=== PATIENT | female | born 1985 | race African-American/Black ===

== ENCOUNTER 2019-06-07 15:04 | Emergency (ER) | payer SELFPAY ==
--- OUTSIDE RECORDS SUMMARY | 2019-06-07 15:09 | XMS REPORT | Continuity of Care Document ---
:1985 Author Organization [facility] Address [address] [place] [address] Phone Care Team Providers Name Role Phone Radha Estrada NP Unavailable Unavailable Allergies, Adverse Reactions, Alerts Substance Reaction Status Penicillins Hives/Skin Rash Active Medications Medication Instructions Dosage Effective Dates (start - Status Comments stop) amlodipine 5 mg tablet - Active Problems Condition Effective Dates Clinical Status Comments (start - stop) Encounter for oth general cnsl and advice on contraception Encntr screen for infections w sexl mode of transmiss Acute vaginitis Encounter for test, result negative Tobacco use Encntr screen for infections w sexl mode of transmiss Subacute and chronic vaginitis Noninflammatory disorder of vagina, unspecified Encounter for oth general cnsl and advice on procreation Encounter for test, result negative 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 Encounter for oth screening for malignant neoplasm of breast Encntr screen for infections w sexl mode of transmiss Acute vaginitis Encounter for oth general cnsl and advice on contraception Encounter for test, result negative Candidiasis of vulva and vagina Subacute and chronic vulvitis Encntr screen for infections w sexl mode of transmiss HIV Counseling HIV, Screening PT, Negative BV BV STI Screening LABORATORY EXAM NOS LABORATORY EXAM NOS Trichomoniasis of other - Chronic specified sites Chlamydia - Chronic BV - Chronic Uterine Fibroid - Chronic Bacterial vaginosis - Active Mapped from [facility] Chronic Conditions table on 10/28/2013 by the ICD9 to SNOMED Bulk Mapping Utility. The mapped diagnosis code was Recurrent BV,Recurrent BV, 616.10, added by Willa Lan NP, with responsible provider Willa Lan NP. Onset date 10/05/2013; last addressed on 10/05/2013; 09/04, 11/04,01/04,02/04, 02/09; 09/04, 11/04,01/04,02/04, 07/10, 04/09, 07/11, 09/08, 03/10, 02/09. Chlamydial infection - Active Mapped from [facility] Chronic Conditions table on 10/28/2013 by the ICD9 to SNOMED Bulk Mapping Utility. The mapped diagnosis code was Chlamydia, 079.98, added by Willa Lan NP, with responsible provider Willa Lan NP. Onset date 10/05/2013; 04/07; 04/07. Infection by Trichomonas - Active Mapped from [facility] Chronic Conditions table on 10/28/2013 by the ICD9 to SNOMED Bulk Mapping Utility. The mapped diagnosis code was Trichomoniasis, 131.8, added by Willa Lan NP, with responsible provider Willa Lan NP. Onset date 10/05/2013; 02/09; 02/09. Uterine leiomyoma - Active Mapped from [facility] Chronic Conditions table on 10/28/2013 by the ICD9 to SNOMED Bulk Mapping Utility. The mapped diagnosis code was Uterine fibroids, 218.9, added by Willa Lan NP, with responsible provider Willa Lan NP. Onset date 10/05/2013. Procedures Procedure Date No information Results Test Name Date and Time Measure Units Reference Range Abnormal Flag Status Comments No information Advance Directives Directive Yes / No Effective Date File Name No information Encounters Encounter Practice Location Reason(s) Diagnoses Date Provider Providers Description For Visit Copied on [facility]counter [facility] 9 [address] [facility] [facility], [address], [place], [place], [address]. [id number], tel:[phone] [phone] [facility] Encounter for oth [facility] [place] general cnsl and [place]. Provider: [facility] advice on 9 [address] [place] contraceptionEncntr [place], [address] [place] infections w sexl [place], St, St, [place], [place], [place], [place] [address], [place], [address]. [id number], vaginitisEncounter [place]. [place] for test, tel:[phone] result negative [id number] [facility] Tobacco useEncntr [facility] [place] screen for Radha. [place] infections w sexl 7 [address] mode of [place], [address], W [place] and chronic [place], St, [place], vaginitisNoninflamm [place] [address]. [id number], vagina, tel:+[phone] [place] unspecifiedEncounte [id number] tel:[phone] r for oth general [phone] cnsl and advice on procreation [facility] Encounter for [facility] [place] test, Pepper. Southern result 6 [address] [place] negativeEncntr for [place], [address] transition teacher exam (general) St, W [place] (routine) w/o abn [place], [place], [place], findingsEncounter [place], for o[place] screening [id number], [id number], for malignant [place]. [place] neoplasm of tel:[phone] breastEncntr screen [id number] for infections w sexl mode of transmissAcute vaginitisEncounter for oth general cnsl and advice on contraception [facility] Encounter for [facility] [place] test, [place] result 5 [place]. [place] negativeCandidiasis [address], [address] of vulva and [place] vaginaSubacute and St, St, [place], chronic [place], vulvitisEncntr [place], [id number], screen [place] [address]. [place] infections w sexl tel:[phone] tel:[phone] mode of transmiss [phone] [id number] [facility] Trichomoniasis of May-0 [facility] [place] other specified 9- Willa. [place] sitesChlamydiaBVUte 4 [address] rine [facility]roid [facility] [address] [place], , [place], [place], [address]. [id number], tel:[phone] [place] [phone] tel:[phone] [facility] HIV CounselingHIV, Mar-2 [facility] [place] Screening 6 Carlie. [place] 4 [address] [place], [address] [place], , [place], [place], [address]. [id number], tel:[phone] [place] [phone] tel:[phone] [facility] PT, NegativeBVBVSTI Jul-2 [facility] Screening 6- Carlie. [place] 4 [address] [place], [address] [facility] , [place], [place], [address]. [id number], tel:[phone] [place] [phone] tel:[phone] [facility] Feb-2 [facility] [place] 7 Willa. [place] 4 [address] [place] [facility], [address] [facility] , [place], [place], [address]. [id number], tel:[phone] [place] [phone] tel:[phone] [facility] LABORATORY EXAM NOS Dec-0 [facility] [place] 4- Rojelio. [place] 3 [address] [place], [address] [place], , [place], [place], [address]. [id number], tel:[phone] [place] [phone] tel:[phone] [facility] LABORATORY EXAM NOS Sep-1 [facility] [place] 1- [place] 3 [place]. [place] [address] [place] [address] [facility], St, [place], [place], [place], [id number], [address]. [place] tel:+[phone] tel:[phone] Family History Family Member Diagnosis Age At Onset Mother Stroke 46 Mother Hypertension Father Renal disease Mother Heart disease Father HIV Grandmother Osteoporosis Immunizations Vaccine Date Status Comments MMR administered Source: New Immunization Record HPV administered Source: New Immunization Record Hepatitis B administered Source: New Immunization Record Hepatitis A administered Source: New Immunization Record Payers Payer name Insurance type Covered democrat ID Authorization(s) Total Care [facility] [id number] Social History Type Description Quantity Date Captured Comments Alcohol Use Details Unknown Caffeine Use Details Unknown Tobacco Use Status Smoking Status Light tobacco smoker Sex Female Vital Signs Date / Height Weight BMI Pulse Blood Temperature Respiratory Body Head BMI Pulse Inhaled Time: Rate Pressure Rate Surface Circumference percentile [place] Area No information Chief Complaint And Reason For Visit No information Reason For Referral Reason For Referral No information Plan Of Treatment Date Type Action Status Goal Tobacco cessation counseling completed History Of Present Illness Encounter Date Complaint History Of Present Illness No information Functional Status Date Functional Assessment No information Medications Administered Medication Instructions Dosage Effective Dates (start - stop) Status Comments No information Instructions Date Instruction Additional Information No information Assessments Type Assessment Date No information Goals Health Concern Goal Type Priority Status Date No information Medical Equipment Description Device [place] Device Identifier Effective Dates (start - stop ) Status No information Mental Status Date Cognitive Assessment No information Health Concerns Observation Date No information Concern Status Date No information
--- OUTSIDE RECORDS SUMMARY | 2019-06-07 15:10 | XMS REPORT | Continuity of Care Document ---
:1985 External Reference #:[id number] Author Name Sun Musa M.D. 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 Onset: 02/23/2018 Social History Type Date Description Comments Sex Unknown Tobacco Use Start: Unknown currently smokes 1/2 Pack Daily ETOH Use Occasionally consumes alcohol Recreational Drug Use Denies Drug Use Tobacco Use Start: Unknown Patient is a current smokes 2-4 paks per smoker, smokes every day week Smoking Status Reviewed: 04/19/19 Patient is a current smokes 2-4 paks per smoker, smokes every day week Allergies, Adverse Reactions, Alerts Active Allergies Reaction Severity Comments Date Penicillin hives 12/03/2009 Medications Active Medications SIG Qnty Indications Ordering Provider Date Fluoxetine HCL 1 by mouth every 30caps F43.23 Sun Musa, 04/19/2019 20mg day M.D. Capsules Hydroxyzine HCL take 1 tab by 14tabs F43.23 Sun Musa, 04/19/2019 25mg mouth every night M.D. 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 10mg Tablets Tylenol Extra 2 by mouth as Unknown Strength needed 500mg Tablets Medications Administered in Office Medication SIG Qnty Indications Ordering Provider Date PPD Injection Nurse Visit C 12/09/2015 Immunizations CPT Code Status Date Vaccine Lot # [id number] Given 01/02/2018 Tdap - Tetanus/Diptheria/Acellular Pertussis [id number] Refused 03/13/2018 Influenza Virus Vaccine, Quadrivalent, Split, Preservative Free Vital Signs Date Vital Result Comment 04/19/2019 9:46am Height 63 inches 5'3" Weight 160.00 lb Heart Rate 81 /min BP Systolic Sitting 121 mmHg BP Diastolic Sitting 82 mmHg O2 % BldC Oximetry 98 % BMI (Body Mass Index) 28.3 kg/m2 10/11/2018 2:20pm Height 63 inches 5'3" Weight 159.50 lb Heart Rate 83 /min BP Systolic 120 mmHg BP Diastolic 88 mmHg Body Temperature 98.8 F O2 % BldC Oximetry 97 % BMI (Body Mass Index) 28.3 kg/m2 Results Description No Information Available Procedures Description No Information Available Medical Devices Description No Information Available Encounters Description No Information Available Assessments Date Code Description Provider 04/19/2019 I10 Essential (primary) hypertension Sun Musa M.D. 04/19/2019 R00.2 Palpitations Sun Musa M.D. 04/19/2019 F43.23 Adjustment disorder with mixed anxiety and Sun Musa M.D. depressed mood Plan of Treatment Future Appointment(s):05/09/2019 2:00 pm - Sun Musa M.D. at [facility] Internal Medicine - [facility]04/19/2019 - Sun Musa M.D.I10 Essential (primary ) welpicdrnnzuI58.2 PalpitationsReferral:Juan Freitas DO, FACC, Cardiovsclr GnkunveO17.23 Adjustment disorder with mixed anxiety and depressed moodNew Medication:Fluoxetine HCL 20 mg - 1 by mouth every dayHydroxyzine HCL 25 mg - take 1 tab by mouth every night as needed for anxietyReferral:Family & amp; Childrens Services, Counseling/PsychFollow up:3 wks Functional Status Description No Information Available Mental Status Description No Information Available Referrals Refer to Reason for Referral Status Appt Date Juan Freitas DO, FACC Created [address] [place] [address] [phone] [facility] Created [address] [place] [address] [phone]
--- OUTSIDE RECORDS SUMMARY | 2019-06-07 15:10 | XMS REPORT | Continuity of Care Document ---
:1985 External Reference #:[id number] Author Name Juan Freitas DO FACC (transmitted by agent of provider Hortensia Sebastian) Address [facility] . 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 Onset: 02/23/2018 Social History Type Date Description Comments Sex Unknown Tobacco Use Start: Unknown currently smokes 1/2 Pack Daily ETOH Use Occasionally consumes alcohol Recreational Drug Use Denies Drug Use Tobacco Use Start: Unknown Patient is a current smokes 2-4 paks per smoker, smokes every day week Smoking Status Reviewed: 05/02/19 Patient is a current smokes 2-4 paks per smoker, smokes every day week Allergies, Adverse Reactions, Alerts Active Allergies Reaction Severity Comments Date Penicillin hives 12/03/2009 Medications Active Medications SIG Qnty Indications Ordering Date Provider Metoprolol 1 by mouth every day 30tabs I49.3 Juan Freitas, 05/02/2019 Succinate ER as needed for DO FACC 25mg palpitaitons Tablets ER 24HR Fluoxetine HCL 1 by mouth every day 30caps F43.23 Sun Musa, 2018 20mg M.D. Capsules Hydroxyzine HCL take 1 tab by mouth 14tabs F43.23 Sun Musa, 2018 every night as M.D. 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 10mg Tablets Tylenol Extra 2 by mouth as needed Unknown Strength 500mg Tablets Medications Administered in Office Medication SIG Qnty Indications Ordering Provider Date PPD Injection Nurse Visit C 12/09/2015 Immunizations CPT Code Status Date Vaccine Lot # [id number] Given 01/02/2018 Tdap - Tetanus/Diptheria/Acellular Pertussis [id number] Refused 03/13/2018 Influenza Virus Vaccine, Quadrivalent, Split, Preservative Free Vital Signs Date Vital Result Comment 05/02/2019 3:12pm Height 63 inches 5'3" Weight 156.00 lb with shoes Heart Rate 80 /min BP Systolic 126 mmHg LA BP Diastolic 80 mmHg LA BP Systolic Sitting 130 mmHg Ra BP Diastolic Sitting 80 mmHg Ra BP Systolic Standing 120 mmHg Ra BP Diastolic Standing 82 mmHg Ra BMI (Body Mass Index) 27.6 kg/m2 Ejection Fraction NONE 04/19/2019 9:46am Height 63 inches 5'3" Weight 160.00 lb Heart Rate 81 /min BP Systolic Sitting 121 mmHg BP Diastolic Sitting 82 mmHg O2 % BldC Oximetry 98 % BMI (Body Mass Index) 28.3 kg/m2 Results Description No Information Available Procedures Date Code Description Status 05/02/2019 62165 EKG Tracing & Interpretation Completed Medical Devices Description No Information Available Encounters Type Date Location Provider Dx Diagnosis Office Visit 05/02/2019 [facility] Juan Leiva I49.3 Ventricular premature 3:30p Of Dayne Freitas, DO [facility] depolarization Z72.0 Tobacco use I10 Essential (primary) hypertension Office Visit 04/19/2019 9:50a 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 04/19/2019 R00.2 Palpitations Sun Musa, M.D. 04/19/2019 F43.23 Adjustment disorder with mixed anxiety and Sun Musa M.D. depressed mood Plan of Treatment Future Appointment(s):05/11/2019 2:30 pm - Traveling ECHO 1 at [facility]05/09/2019 2:00 pm - Sun Musa M.D. at [facility] Internal Medicine - [facility]05/02/2019 - Juan Freitas DO FACCI49.3 Ventricular premature depolarizationNew Medication:Metoprolol Succinate ER 25 mg - 1 by mouth every day as needed for palpitaitonsNew Orders:Echocardiogram, Ordered: Follow up:f/u PRNZ72.0 Tobacco useI10 Essential (primary) hypertension Functional Status Description No Information Available Mental Status Description No Information Available Referrals Refer to Reason for Referral Status Appt Date Juan Freitas DO, FACC Sent 05/02/2019 [facility] [place] [address] [phone] Family [facility] Created [address] [place], [place] [id number] [phone]
[2019-06-07 15:15] VITALS: BP 134/85
--- NOTE | 2019-06-07 15:29 | UC ---
FLU HPI - HPI Summary HPI Summary: 34-year-old woman comes in with chief complaint of fevers chills bodyaches sore throat for 5 days. She didn't taking acetaminophen which does not help very much. She has had some diarrhea. No complaint of any shortness of breath or vomiting. - History of Current Complaint Chief Complaint: UCGeneralIllness Stated Complaint: VOMITING Time Seen by Provider: 06/07/19 15:09 Hx Last Menstrual Period: Last Tuesday Pain Intensity: 8 - Allergy/Home Medications Allergies/Adverse Reactions: Allergies Allergy/AdvReac Type Severity Reaction Status Date / Time Penicillins Allergy Intermediate Hives Verified 06/07/19 15:15 PMH/Surg Hx/FS Hx/Imm Hx Previously Healthy: Yes Cardiovascular History: Hypertension - Surgical History Surgical History: None Surgery Procedure, Year, and Place: NONE - Family History Known Family History: Positive: Hypertension - Social History Alcohol Use: Occasionally Substance Use Type: None Smoking Status (MU): Light Every Day Tobacco Smoker Type: Cigarettes Amount Used/How Often: 3-4/day Have You Smoked in the Last Year: Yes - Immunization History Most Recent Influenza Vaccination: not currently flu season Most Recent Pneumonia Vaccination: unknown Review of Systems All Other Systems Reviewed And Are Negative: Yes Constitutional: Positive: Fever, Chills, Other - see hpi Skin: Positive: Negative Eyes: Positive: Negative ENT: Positive: Sore Throat, Nasal Discharge, Sinus Congestion Respiratory: Positive: Cough Cardiovascular: Positive: Negative Gastrointestinal: Positive: Diarrhea Genitourinary: Positive: Negative Motor: Positive: Negative Neurovascular: Positive: Negative Musculoskeletal: Positive: Myalgia Psychological: Positive: Negative Is Patient Immunocompromised?: No Physical Exam Triage Information Reviewed: Yes Appearance: No Pain Distress, Well-Nourished, Ill-Appearing - mild Vital Signs: Initial Vital Signs Temp 98.3 F 06/07/19 15:10 Pulse 85 06/07/19 15:10 Resp 16 06/07/19 15:10 BP 134/85 06/07/19 15:10 Pulse Ox 98 06/07/19 15:10 Vital Signs Reviewed: Yes Eye Exam: Normal Eyes: Positive: Conjunctiva Clear ENT: Positive: Pharyngeal erythema, Nasal congestion, Nasal drainage, TMs normal Neck: Positive: Supple Respiratory: Positive: Lungs clear, Normal breath sounds, No respiratory distress Cardiovascular: Positive: RRR Musculoskeletal: Positive: Strength Intact, ROM Intact Neurological: Positive: Alert, Muscle Tone Normal Psychological: Positive: Age Appropriate Behavior Skin Exam: Normal Flu Course/Dx - Differential Dx/Diagnosis Provider Diagnosis: Strep pharyngitis Discharge ED - Sign-Out/Discharge Documenting (check all that apply): Patient Departure All imaging exams completed and their final reports reviewed: No Studies - Discharge Plan Condition: Stable Disposition: HOME Prescriptions: Azithromyxin MIGUEL (NF) [Z-Miguel (Zithromax) 250 mg tabs #6] 2 tab PO .TODAY, THEN 1 DAILY #6 tab Patient Education Materials: Strep Throat (ED) Referrals: Sun Musa MD [Primary Care Provider] - Additional Instructions: FOLLOW UP WITH YOUR DOCTOR IF NOT COMPLETELY IMPROVED. GET REEVALUATED SOONER IF NOT IMPROVED OR WORSE OR ANY QUESTIONS OR CONCERNS. - Billing Disposition and Condition Condition: STABLE Disposition: Home
[2019-06-07 15:31] LABS: Influenza A Molecular NEGATIVE (Negative); Influenza B Molecular NEGATIVE (Negative)
== END 2019-06-07 15:48 | disposition home or self-care (01) ==
LOC: UCEAST 15:04
DX: J02.0 Streptococcal pharyngitis (principal); R09.81 Nasal congestion; R19.7 Diarrhea, unspecified; I10 Essential (primary) hypertension; F17.210 Nicotine dependence, cigarettes, uncomplicated; Z88.0 Allergy status to penicillin
CPT/HCPCS: 87651; 99212; G0463

== ENCOUNTER 2019-08-07 12:50 | Emergency (ER) | payer SELFPAY ==
[2019-08-07 13:41] VITALS: BP 133/86
== END 2019-08-07 14:00 | disposition left against medical advice (07) ==
LOC: UCEAST 12:50
DX: Z53.21 Procedure and treatment not carried out due to patient leaving prior to being seen by health care provider (principal)